=== PATIENT | female | born 1995 | race Caucasian/White ===

== ENCOUNTER 2024-01-03 17:25 | Inpatient (IN) ==
[2024-01-03 18:09] VITALS: BMI 22.1
[2024-01-03] MEDS: LR 1,000 ML IV 1,000 ML IV ONE (18:25)
[2024-01-03 18:29] LABS: BILIRUBIN,URINE NEGATIVE (NEGATIVE); BLOOD/HEMOGLOBIN,URINE 3+ (NEGATIVE); GLUCOSE, URINE NEGATIVE (NEGATIVE); KETONES,URINE NEGATIVE (NEGATIVE); LEUKOCYTE ESTERASE ,URINE NEGATIVE (NEGATIVE); NITRITES,URINE NEGATIVE (NEGATIVE); PROTEIN,URINE 1+ (NEGATIVE); UROBILINOGEN,URINE NORMAL (NORMAL)
[2024-01-03 18:30] LABS: APPEARANCE,URINE CLEAR (CLEAR); COLOR,URINE PALE YELLOW (YELLOW)
[2024-01-03] MEDS: BRETHINE INJ 1 MG VIAL SC ONE ×2 (18:35→21:26)
[2024-01-03 18:36] LABS: BACTERIA,URINE TRACE /HPF (NEGATIVE); SQUAMOUS EPITHELIAL CELL,UR RARE /HPF (NEGATIVE)
[2024-01-03] MEDS: NS 100 ML IV 100 ML ONE (18:40)
[2024-01-03] MEDS: AMPICILLIN VIAL 2 GRAM 2 G in NS 100 ML IV 100 ML IV ONE (18:40)
[2024-01-03] MEDS ORDERED: MAGNESIUM SULFATE 40 GRAMS IV 40 G/1,000 ML BAG IV ONE (18:43)
[2024-01-03] MEDS: MAGNESIUM SULFATE 40 GRAMS IV 40 G/1,000 ML BAG IV PRN (18:45)
[2024-01-03 18:55] LABS: HEMOGLOBIN 13.6 g/dL (12.0-16.0); WHITE BLOOD COUNT 14.5 X10^3/uL (3.6-10.0)
[2024-01-03 18:56] LABS: BASOPHILS # (AUTO) 0.1 X10^3/uL (0.0-0.1); EOSINOPHILS # (AUTO) 0.1 x10^3/uL (0.0-0.2); MEAN PLATELET VOLUME 10.5 fL (7.4-11.0)
[2024-01-03 18:59] LABS: BASOPHILS % (AUTO) 0.4 % (0.2-1.0); EOSINOPHILS % (AUTO) 0.6 % (0.9-2.9); HEMATOCRIT 39.5 % (36.0-47.0); LYMPHOCYTES # (AUTO) 2.6 X10^3/uL (1.3-2.9); LYMPHOCYTES % (AUTO) 18.3 % (21.0-51.0); MEAN CORPUSCULAR HEMOGLOBIN 31.8 pg (27.0-34.0); MEAN CORPUSCULAR HGB CONC 34.3 g/dL (33.0-35.0); MEAN CORPUSCULAR VOLUME 92.6 fL (80.0-100.0); MONOCYTES # (AUTO) 0.9 x10^3/uL (0.3-0.8); NEUTROPHILS # (AUTO) 10.8 x10^3/uL (2.2-4.8); NEUTROPHILS % (AUTO) 74.7 % (42.0-75.0); PLATELET COUNT 158 X10^3/uL (150.0-450.0); RED BLOOD COUNT 4.27 X10^6/uL (3.5-5.4); RED CELL DISTRIBUTION WIDTH 12.8 % (11.6-16.5)
[2024-01-03] MEDS: CELESTONE SOLUSPAN IM ONE (19:00)
[2024-01-03 19:06] LABS: ALANINE AMINOTRANSFERASE 17 Units/L (12-78); ALKALINE PHOSPHATASE 106 Units/L (46-116); ASPARTATE AMINO TRANSFERASE 21 Units/L (15-37); BLOOD UREA NITROGEN 8 mg/dL (7-18); CALCIUM 8.8 mg/dL (8.5-10.1); CARBON DIOXIDE 25.3 mmol/L (21-32); CHLORIDE 100 mmol/L (98-107); COR CA(FOR HYPOALB) 9.6 mg/dL (8.5-10.1); GLUCOSE 67 mg/dL (65-99); POTASSIUM 3.9 mmol/L (3.5-5.1); SODIUM 135 mmol/L (136-145); TOTAL PROTEIN 6.8 g/dL (6.4-8.2); eGFR NON BLACK RACES > 60 (>60)
[2024-01-03] MEDS ORDERED: ZOFRAN INJ 4 MG VIAL IVP PRN (19:32)
[2024-01-03] MEDS ORDERED: NUBAIN INJ 20 MG AMP IVP PRN (19:32)
--- NOTE | 2024-01-03 19:32 | DR.H&PGYN ---
H&P OBSTERICS/GYNECOLOGY Date Date of Exam: 01/03/24 Chief Complaint (1) Premature labor affecting third : Chief Complaint: Labor (2) with 34 completed weeks gestation: Allergies Allergies Allergy/AdvReac Type Severity Reaction Status Date / Time cefdinir [From Omnicef] Allergy Verified 01/03/24 17:55 History of Present Illness History of Present Illness: Patient is a 28 year old, G3, P1011, presents with decreased movement at 34 w 0 d, and was found to be in labor, 4 cm dilated, and chandler every 1-[address] is Sruthi Demarco in [place]. No rupture of membranes. Review of Systems Constitutional: No Symptoms Reported Eyes: No Symptoms Reported ENT: No Symptoms Reported Respiratory: No Symptoms Reported Cardiovascular: No Symptoms Reported Gastrointestinal: No Symptoms Reported Genitourinary: Other (decreased movement) Musculoskeletal: No Symptoms Reported Skin: No Symptoms Reported Neurological: No Symptoms Reported Obsterical History : 3 Para: 1 : 1 Gynecologic History Date of Last Pap Smear: unknown Past Medical History Medical History: No History Family History Significant Family History: No pertinent family hx Medications Active Medications Magnesium Sulfate (Magnesium Sulfate 40 Grams Iv) 40 g in 1,000 mls @ 50 mls/hr IV PER PROTOCOL PRN; Protocol PRN Reason: PER PROTOCOL Physical Exam Temperature: 98.5 F Blood Pressure: 132/66 Respiratory Rate: 16 Pulse Rate: 130 O2 Sat by Pulse Oximetry: 100 Oriented: Normal Eyes: Normal Respiratory: Normal Cardiovascular: Normal : Other (Cervix: 5 / 75 / V / 0 station, intact, Category I tracing. Contractions every 1-2 minutes. ) GI: Other (soft nontender, gravid) Skin: Normal Musculoskeletal: Normal Psychiatric: Normal Mood Description: Calm Affect: Normal Speech Pattern: Clear Plan Plan: Attempt was made to call and request transfer to her doctor in [place], however interval cervical exam reveals 5 cm dilated and 75-80 % effaced. Therefore transfer request was withdrawn. Expectant of vaginal delivery. Review H&P Reviewed: Yes Patient was examined?: Yes
[2024-01-03] MEDS: FENTANYL VIAL INJ 100 mcg ONE ×2 (20:30→20:33)
[2024-01-03] MEDS: NAROPIN EPIDURAL 0.2% 100 ML ONE (20:42)
[2024-01-03] MEDS: OXYTOCIN 20 UNIT/1,000 ML-NS 20 UNIT/1,000 ML PLAST..BAG IV PRN (21:20)
[2024-01-03] MEDS: AMPICILLIN VIAL 2 GRAM ONE (21:28)
[2024-01-03] MEDS: PITOCIN ONE (21:53)
[2024-01-03] MEDS: CYTOTEC PO ONE (22:56)
[2024-01-03] MEDS: PITOCIN IVP ONE (23:02)
[2024-01-03] MEDS: CYTOTEC ONE (23:02)
[2024-01-04] MEDS: ADACEL or BOOSTRIX TDaP VACCINE IM ONE (03:32)
[2024-01-04] MEDS: MOTRIN TAB 600 MG PO PRN (04:01)
[2024-01-04] MEDS: CYTOTEC PO SCH (04:09)
[2024-01-04 05:13] LABS: HEMATOCRIT 37.1 % (36.0-47.0); HEMOGLOBIN 12.5 g/dL (12.0-16.0)
--- NOTE | 2024-01-04 09:27 | NOTE.PROOB ---
progress Note OB- Date Date of Exam: 01/04/24 Subjective Data Subjective: Back pain from epidural placement. Took ibuprofen with little relief. . Sent some colostrum to the baby in [place], and therefore concerned about heavier meds. Minimal vaginal bleeding. Has not eaten breakfast yet. Has not decided whether to leave today or tomorrow, given that the baby is in [place]. Objective Data 01/04/24 04:08 01/03/24 18:35 Objective Data: 28 year old G2, P2, PPD#1 status post delivery at 34 w 0 d. NAD. Lungs CTA. RRR. Abdomen fundus firm at umbilicus. Extermities normal. No CCE. Assessment Assessment: PPD#1 status post premature vaginal delivery at 34 w. Doing well. Plan (1) Premature labor affecting third : Plan: Recommend staying at least 24 hours for observation. (2) with 34 completed weeks gestation:
[2024-01-04] MEDS ORDERED: ADACEL or BOOSTRIX TDaP VACCINE IM ONE (09:40)
[2024-01-04] MEDS: PERCOCET TAB 5/325 MG PO PRN (12:23)
[2024-01-04] MEDS: BETADINE SOLN ONE (12:31)
[2024-01-04] MEDS: HYPERRHO S/D (or RHOGAM) IM ONE (12:32)
[2024-01-04 16:09] VITALS: TEMP 98.2
[2024-01-04 20:10] VITALS: BP 118/69; PULSE 77; RESP 18; O2SAT 98
--- NOTE | 2024-01-09 11:48 | DR.OPNOTE ---
OP NOTE Pre-Op Diagnosis: Premature labor 34 weeks Post-Op Diagnosis: same Procedure Date Date Of Procedure: 01/03/24 Procedure: Normal spontaneous vaginal delivery Type of Anesthesia: Epidural Anesthetic Findings: Live male infant. Called to see patient in second stage labor who is feeling pressure. Found to be completely dilated at 2 + station. Normal spontaneous vaginal delivery with adequate maternal pushing, over intact perineum. Nuchal card reduced, and body delivered. placed on maternal abdomen, and cord was clamped and cut after a one minute delay. Infant then handed off to respiratory and pediatrics staff at the [facility]. Placenta delivered spontaneously, and appears to be intact. Lower uterine segment run with a sponge on forceps, no trailing membranes. No lacerations. Hemostasis verified on the perineum. Fundus firm after massage. Family present at the bedside demonstrate appropriate bonding. Specimen/Pathology: Placenta, cord blood Total Amount of Fluid Infused:: Lactated ringers with pitocin EBL: 50 cc Drains/Tubes Placed: None Drains/Tubes Comment: IUPC placed Complications:: none Disposition/Condition: LDR in stable condition. transferred to nursery in [place] due to prematurity.
--- NOTE | 2024-01-09 11:49 | W.DIS.FURT ---
Summary of Discharge Discharge Summary of Date Date of Exam: 01/04/24 Admission Date Date of Admission: 01/03/24 Admission Diagnosis Hospital Course: Presented in premature labor, with advanced cervical dilation, and progressive cervical change. Vital Signs: Vital Signs (72 hours) 01/03/24 19:32 01/03/24 17:56 01/03/24 18:22 Temperature 98.5 F 98.5 F Pulse Rate 130 H 88 86 Pulse Rate [Left Radial] Pulse Rate [Right Brachial] Respiratory Rate 16 16 Blood Pressure 132/66 120/71 Blood Pressure [Left Arm] O2 Sat by Pulse Oximetry 100 98 99 Oxygen Delivery Method Room Air 01/03/24 18:30 01/03/24 18:30 01/03/24 18:39 Temperature Pulse Rate 93 H 96 H Pulse Rate [Left Radial] Pulse Rate [Right Brachial] Respiratory Rate Blood Pressure 132/86 Blood Pressure [Left Arm] O2 Sat by Pulse Oximetry 100 100 Oxygen Delivery Method 01/03/24 18:50 01/03/24 18:54 01/03/24 18:55 Temperature Pulse Rate 109 H Pulse Rate [Left Radial] Pulse Rate [Right Brachial] Respiratory Rate Blood Pressure 115/78 131/63 Blood Pressure [Left Arm] O2 Sat by Pulse Oximetry 100 Oxygen Delivery Method 01/03/24 18:55 01/03/24 19:00 01/03/24 19:00 Temperature Pulse Rate 110 H 128 H Pulse Rate [Left Radial] Pulse Rate [Right Brachial] Respiratory Rate Blood Pressure 137/65 Blood Pressure [Left Arm] O2 Sat by Pulse Oximetry 100 100 Oxygen Delivery Method 01/03/24 19:02 01/03/24 19:02 01/03/24 19:05 Temperature Pulse Rate 125 H 118 H Pulse Rate [Left Radial] Pulse Rate [Right Brachial] Respiratory Rate Blood Pressure 136/70 Blood Pressure [Left Arm] O2 Sat by Pulse Oximetry 100 100 Oxygen Delivery Method 01/03/24 19:05 01/03/24 19:10 01/03/24 19:10 Temperature Pulse Rate 130 H Pulse Rate [Left Radial] Pulse Rate [Right Brachial] Respiratory Rate Blood Pressure 145/65 132/66 Blood Pressure [Left Arm] O2 Sat by Pulse Oximetry 100 Oxygen Delivery Method 01/03/24 19:26 01/03/24 19:31 01/03/24 19:33 Temperature Pulse Rate 109 H 110 H 117 H Pulse Rate [Left Radial] Pulse Rate [Right Brachial] Respiratory Rate Blood Pressure 137/72 Blood Pressure [Left Arm] O2 Sat by Pulse Oximetry 100 100 Oxygen Delivery Method 01/03/24 19:36 01/03/24 19:41 01/03/24 19:46 Temperature Pulse Rate 109 H 110 H 104 H Pulse Rate [Left Radial] Pulse Rate [Right Brachial] Respiratory Rate Blood Pressure Blood Pressure [Left Arm] O2 Sat by Pulse Oximetry 100 100 100 Oxygen Delivery Method 01/03/24 19:48 01/03/24 19:51 01/03/24 19:56 Temperature Pulse Rate 112 H 106 H 113 H Pulse Rate [Left Radial] Pulse Rate [Right Brachial] Respiratory Rate Blood Pressure 137/74 Blood Pressure [Left Arm] O2 Sat by Pulse Oximetry 100 100 Oxygen Delivery Method 01/03/24 20:01 01/03/24 20:04 01/03/24 20:06 Temperature 97.3 F L Pulse Rate 114 H 120 H 127 H Pulse Rate [Left Radial] Pulse Rate [Right Brachial] Respiratory Rate Blood Pressure 130/64 Blood Pressure [Left Arm] O2 Sat by Pulse Oximetry 100 100 Oxygen Delivery Method 01/03/24 20:11 01/03/24 20:16 01/03/24 20:19 Temperature Pulse Rate 127 H 129 H 122 H Pulse Rate [Left Radial] Pulse Rate [Right Brachial] Respiratory Rate Blood Pressure 123/58 Blood Pressure [Left Arm] O2 Sat by Pulse Oximetry 100 100 Oxygen Delivery Method 01/03/24 20:21 01/03/24 20:26 01/03/24 20:30 Temperature Pulse Rate 129 H 122 H 125 H Pulse Rate [Left Radial] Pulse Rate [Right Brachial] Respiratory Rate Blood Pressure 125/65 Blood Pressure [Left Arm] O2 Sat by Pulse Oximetry 100 100 Oxygen Delivery Method 01/03/24 20:31 01/03/24 20:33 01/03/24 20:36 Temperature Pulse Rate 126 H 116 H 125 H Pulse Rate [Left Radial] Pulse Rate [Right Brachial] Respiratory Rate Blood Pressure 125/61 139/62 Blood Pressure [Left Arm] O2 Sat by Pulse Oximetry 100 100 Oxygen Delivery Method 01/03/24 20:39 01/03/24 20:41 01/03/24 20:42 Temperature Pulse Rate 118 H 119 H 114 H Pulse Rate [Left Radial] Pulse Rate [Right Brachial] Respiratory Rate Blood Pressure 114/57 132/59 Blood Pressure [Left Arm] O2 Sat by Pulse Oximetry 99 Oxygen Delivery Method 01/03/24 20:45 01/03/24 20:46 01/03/24 20:48 Temperature Pulse Rate 115 H 109 H 112 H Pulse Rate [Left Radial] Pulse Rate [Right Brachial] Respiratory Rate Blood Pressure 131/60 124/59 Blood Pressure [Left Arm] O2 Sat by Pulse Oximetry 100 Oxygen Delivery Method 01/03/24 20:51 01/03/24 20:30 01/03/24 20:54 Temperature Pulse Rate 107 H 105 H Pulse Rate [Left Radial] Pulse Rate [Right Brachial] Respiratory Rate 18 Blood Pressure 124/60 122/57 Blood Pressure [Left Arm] O2 Sat by Pulse Oximetry 100 Oxygen Delivery Method 01/03/24 20:56 01/03/24 20:57 01/03/24 21:00 Temperature Pulse Rate 121 H 108 H Pulse Rate [Left Radial] Pulse Rate [Right Brachial] Respiratory Rate Blood Pressure 123/58 131/60 Blood Pressure [Left Arm] O2 Sat by Pulse Oximetry 100 Oxygen Delivery Method 01/03/24 21:01 01/03/24 21:03 01/03/24 21:06 Temperature Pulse Rate 108 H 105 H 110 H Pulse Rate [Left Radial] Pulse Rate [Right Brachial] Respiratory Rate Blood Pressure 136/59 130/61 Blood Pressure [Left Arm] O2 Sat by Pulse Oximetry 100 100 Oxygen Delivery Method 01/03/24 21:09 01/03/24 21:11 01/03/24 21:12 Temperature Pulse Rate 96 H 102 H 102 H Pulse Rate [Left Radial] Pulse Rate [Right Brachial] Respiratory Rate Blood Pressure 116/55 106/58 Blood Pressure [Left Arm] O2 Sat by Pulse Oximetry 100 Oxygen Delivery Method 01/03/24 21:15 01/03/24 21:16 01/03/24 21:18 Temperature Pulse Rate 100 H 106 H 102 H Pulse Rate [Left Radial] Pulse Rate [Right Brachial] Respiratory Rate Blood Pressure 105/56 112/55 Blood Pressure [Left Arm] O2 Sat by Pulse Oximetry 100 Oxygen Delivery Method 01/03/24 21:21 01/03/24 21:24 01/03/24 21:26 Temperature Pulse Rate 94 H 107 H 96 H Pulse Rate [Left Radial] Pulse Rate [Right Brachial] Respiratory Rate Blood Pressure 114/59 102/50 Blood Pressure [Left Arm] O2 Sat by Pulse Oximetry 100 100 Oxygen Delivery Method 01/03/24 21:27 01/03/24 21:30 01/03/24 21:31 Temperature Pulse Rate 100 H 107 H 101 H Pulse Rate [Left Radial] Pulse Rate [Right Brachial] Respiratory Rate Blood Pressure 115/56 116/62 Blood Pressure [Left Arm] O2 Sat by Pulse Oximetry 100 Oxygen Delivery Method 01/03/24 21:36 01/03/24 21:39 01/03/24 21:42 Temperature Pulse Rate 104 H 102 H 214 H Pulse Rate [Left Radial] Pulse Rate [Right Brachial] Respiratory Rate Blood Pressure 130/62 120/64 Blood Pressure [Left Arm] O2 Sat by Pulse Oximetry 100 Oxygen Delivery Method 01/03/24 21:41 01/03/24 21:46 01/03/24 21:45 Temperature Pulse Rate 104 H 94 H Pulse Rate [Left Radial] Pulse Rate [Right Brachial] Respiratory Rate 18 Blood Pressure Blood Pressure [Left Arm] O2 Sat by Pulse Oximetry 91 L 100 Oxygen Delivery Method 01/03/24 21:51 01/03/24 21:56 01/03/24 21:58 Temperature Pulse Rate 96 H 95 H 98 H Pulse Rate [Left Radial] Pulse Rate [Right Brachial] Respiratory Rate Blood Pressure 124/60 Blood Pressure [Left Arm] O2 Sat by Pulse Oximetry 100 100 Oxygen Delivery Method 01/03/24 22:01 01/03/24 22:06 01/03/24 22:11 Temperature Pulse Rate 101 H 100 H 114 H Pulse Rate [Left Radial] Pulse Rate [Right Brachial] Respiratory Rate Blood Pressure Blood Pressure [Left Arm] O2 Sat by Pulse Oximetry 100 100 100 Oxygen Delivery Method 01/03/24 22:13 01/03/24 22:16 01/03/24 22:15 Temperature 97.2 F L Pulse Rate 100 H 97 H Pulse Rate [Left Radial] Pulse Rate [Right Brachial] Respiratory Rate 18 Blood Pressure 127/63 Blood Pressure [Left Arm] O2 Sat by Pulse Oximetry 100 Oxygen Delivery Method 01/03/24 22:19 01/03/24 22:21 01/03/24 22:26 Temperature Pulse Rate 101 H 99 H 104 H Pulse Rate [Left Radial] Pulse Rate [Right Brachial] Respiratory Rate Blood Pressure Blood Pressure [Left Arm] O2 Sat by Pulse Oximetry 77 L 100 96 Oxygen Delivery Method 01/03/24 22:28 01/03/24 22:31 01/03/24 22:33 Temperature Pulse Rate 112 H 107 H 114 H Pulse Rate [Left Radial] Pulse Rate [Right Brachial] Respiratory Rate Blood Pressure 125/77 Blood Pressure [Left Arm] O2 Sat by Pulse Oximetry 100 93 L Oxygen Delivery Method 01/03/24 22:36 01/03/24 22:40 01/03/24 22:43 Temperature Pulse Rate 112 H 114 H 140 H Pulse Rate [Left Radial] Pulse Rate [Right Brachial] Respiratory Rate Blood Pressure Blood Pressure [Left Arm] O2 Sat by Pulse Oximetry 91 L 90 L 97 Oxygen Delivery Method 01/03/24 22:48 01/03/24 22:49 01/03/24 22:53 Temperature Pulse Rate 103 H 107 H 106 H Pulse Rate [Left Radial] Pulse Rate [Right Brachial] Respiratory Rate Blood Pressure Blood Pressure [Left Arm] O2 Sat by Pulse Oximetry 97 88 L 97 Oxygen Delivery Method 01/03/24 22:58 01/03/24 23:03 01/03/24 23:08 Temperature Pulse Rate 103 H 111 H 98 H Pulse Rate [Left Radial] Pulse Rate [Right Brachial] Respiratory Rate Blood Pressure Blood Pressure [Left Arm] O2 Sat by Pulse Oximetry 98 98 100 Oxygen Delivery Method 01/03/24 23:13 01/03/24 23:18 01/03/24 23:22 Temperature Pulse Rate 98 H 95 H 93 H Pulse Rate [Left Radial] Pulse Rate [Right Brachial] Respiratory Rate Blood Pressure Blood Pressure [Left Arm] O2 Sat by Pulse Oximetry 100 100 90 L Oxygen Delivery Method 01/03/24 23:24 01/03/24 23:24 01/03/24 23:29 Temperature Pulse Rate 91 H 95 H 94 H Pulse Rate [Left Radial] Pulse Rate [Right Brachial] Respiratory Rate Blood Pressure Blood Pressure [Left Arm] O2 Sat by Pulse Oximetry 100 90 L 100 Oxygen Delivery Method 01/03/24 23:34 01/03/24 23:39 01/03/24 19:30 Temperature Pulse Rate 91 H 89 Pulse Rate [Left Radial] Pulse Rate [Right Brachial] Respiratory Rate Blood Pressure Blood Pressure [Left Arm] O2 Sat by Pulse Oximetry 100 100 Oxygen Delivery Method Room Air 01/03/24 22:46 01/03/24 23:00 01/03/24 23:15 Temperature 98.2 F Pulse Rate 95 H 91 H 94 H Pulse Rate [Left Radial] Pulse Rate [Right Brachial] Respiratory Rate 18 18 18 Blood Pressure 116/66 117/69 114/70 Blood Pressure [Left Arm] O2 Sat by Pulse Oximetry Oxygen Delivery Method 01/03/24 23:30 01/03/24 22:54 01/04/24 00:10 Temperature 99.1 F 99.1 F Pulse Rate 89 87 87 Pulse Rate [Left Radial] Pulse Rate [Right Brachial] Respiratory Rate 18 20 20 Blood Pressure 116/66 147/69 147/69 Blood Pressure [Left Arm] O2 Sat by Pulse Oximetry Oxygen Delivery Method 01/03/24 23:55 01/03/24 23:55 01/04/24 00:30 Temperature 99.1 F 98.6 F Pulse Rate 88 Pulse Rate [Left Radial] 87 Pulse Rate [Right Brachial] Respiratory Rate 20 18 Blood Pressure 141/72 Blood Pressure [Left Arm] 147/69 O2 Sat by Pulse Oximetry 98 Oxygen Delivery Method Room Air Room Air 01/03/24 23:45 01/04/24 00:40 01/04/24 00:55 Temperature 98.4 F 99.0 F Pulse Rate 89 89 86 Pulse Rate [Left Radial] Pulse Rate [Right Brachial] Respiratory Rate 17 18 20 Blood Pressure 120/68 136/71 132/70 Blood Pressure [Left Arm] O2 Sat by Pulse Oximetry Oxygen Delivery Method 01/04/24 01:10 01/04/24 04:01 01/04/24 04:10 Temperature 98.7 F 98.1 F Pulse Rate 89 79 Pulse Rate [Left Radial] Pulse Rate [Right Brachial] Respiratory Rate 18 18 18 Blood Pressure 162/74 137/80 Blood Pressure [Left Arm] O2 Sat by Pulse Oximetry Oxygen Delivery Method 01/04/24 03:55 01/04/24 05:01 01/04/24 05:10 Temperature 98.1 F 98.7 F Pulse Rate 75 Pulse Rate [Left Radial] 79 Pulse Rate [Right Brachial] Respiratory Rate 18 18 16 Blood Pressure 127/75 Blood Pressure [Left Arm] 137/80 O2 Sat by Pulse Oximetry 96 Oxygen Delivery Method Room Air 01/04/24 12:23 01/04/24 13:34 01/04/24 07:00 Temperature Pulse Rate Pulse Rate [Left Radial] Pulse Rate [Right Brachial] Respiratory Rate 18 18 Blood Pressure Blood Pressure [Left Arm] O2 Sat by Pulse Oximetry Oxygen Delivery Method Room Air 01/04/24 08:00 01/04/24 12:00 01/04/24 16:00 Temperature 98.7 F 98.8 F 98.2 F Pulse Rate Pulse Rate [Left Radial] 58 L 62 Pulse Rate [Right Brachial] 94 H Respiratory Rate 21 21 21 Blood Pressure Blood Pressure [Left Arm] 120/78 134/77 125/73 O2 Sat by Pulse Oximetry 97 100 95 Oxygen Delivery Method Room Air Room Air Room Air 01/04/24 19:00 01/04/24 20:00 01/04/24 22:13 Temperature 98.2 F Pulse Rate Pulse Rate [Left Radial] Pulse Rate [Right Brachial] 77 Respiratory Rate 18 18 Blood Pressure Blood Pressure [Left Arm] 118/69 O2 Sat by Pulse Oximetry 98 Oxygen Delivery Method Room Air Room Air 01/04/24 22:18 Temperature Pulse Rate Pulse Rate [Left Radial] Pulse Rate [Right Brachial] Respiratory Rate 18 Blood Pressure Blood Pressure [Left Arm] O2 Sat by Pulse Oximetry Oxygen Delivery Method Labs: Laboratory Last Values WBC 14.5 X10^3/uL (3.6-10.0) H 01/03/24 18:35 RBC 4.27 X10^6/uL (3.5-5.4) 01/03/24 18:35 Hgb 12.5 g/dL (12.0-16.0) 01/04/24 04:08 Hct 37.1 % (36.0-47.0) 01/04/24 04:08 MCV 92.6 fL (80.0-100.0) 01/03/24 18:35 MCH 31.8 pg (27.0-34.0) 01/03/24 18:35 MCHC 34.3 g/dL (33.0-35.0) 01/03/24 18:35 RDW 12.8 % (11.6-16.5) 01/03/24 18:35 Plt Count 158 X10^3/uL (150.0-450.0) 01/03/24 18:35 MPV 10.5 fL (7.4-11.0) 01/03/24 18:35 Neut % (Auto) 74.7 % (42.0-75.0) 01/03/24 18:35 Lymph % (Auto) 18.3 % (21.0-51.0) L 01/03/24 18:35 [place] % (Auto) 6.0 % (0.0-13.0) 01/03/24 18:35 Eos % (Auto) 0.6 % (0.9-2.9) L 01/03/24 18:35 Baso % (Auto) 0.4 % (0.2-1.0) 01/03/24 18:35 Neut # (Auto) 10.8 x10^3/uL (2.2-4.8) H 01/03/24 18:35 Lymph # (Auto) 2.6 X10^3/uL (1.3-2.9) 01/03/24 18:35 [place] # (Auto) 0.9 x10^3/uL (0.3-0.8) H 01/03/24 18:35 Eos # (Auto) 0.1 x10^3/uL (0.0-0.2) 01/03/24 18:35 Baso # (Auto) 0.1 X10^3/uL (0.0-0.1) 01/03/24 18:35 Absolute Nucleated RBC 0.2 /100WBC 01/03/24 18:35 Sodium 135 mmol/L (136-145) L 01/03/24 18:35 Corrected Sodium TNP 01/03/24 18:35 Potassium 3.9 mmol/L (3.5-5.1) 01/03/24 18:35 Chloride 100 mmol/L (98-107) 01/03/24 18:35 Carbon Dioxide 25.3 mmol/L (21-32) 01/03/24 18:35 BUN 8 mg/dL (7-18) 01/03/24 18:35 Creatinine 0.60 mg/dL (0.55-1.02) 01/03/24 18:35 Est GFR (MDRD) Af Amer > 60 (>60) 01/03/24 18:35 Est GFR (MDRD) Non-Af > 60 (>60) 01/03/24 18:35 Glucose 67 mg/dL (65-99) 01/03/24 18:35 POC Glucose (mg/dL) 92 mg/dL (65-99) 01/04/24 19:20 Calcium 8.8 mg/dL (8.5-10.1) 01/03/24 18:35 Corrected Calcium 9.6 mg/dL (8.5-10.1) 01/03/24 18:35 Total Bilirubin 0.30 mg/dL (0.2-1.0) 01/03/24 18:35 AST 21 Units/L (15-37) 01/03/24 18:35 ALT 17 Units/L (12-78) 01/03/24 18:35 Alkaline Phosphatase 106 Units/L (46-116) 01/03/24 18:35 Total Protein 6.8 g/dL (6.4-8.2) 01/03/24 18:35 Albumin 3.0 g/dL (3.4-5.0) L 01/03/24 18:35 Globulin 3.8 g/dL (2.5-4.5) 01/03/24 18:35 Albumin/Globulin Ratio 0.8 Ratio (1.1-2.1) L 01/03/24 18:35 Specimen Type Clean catch urine 01/03/24 18:15 Urine Color Pale yellow (YELLOW) 01/03/24 18:15 Urine Appearance Clear (CLEAR) 01/03/24 18:15 Urine pH 6.0 (5.0 - 8.0) 01/03/24 18:15 Ur Specific [place] 1.015 (1.000-1.030) 01/03/24 18:15 Urine Protein 1+ (NEGATIVE) 01/03/24 18:15 Urine Glucose (UA) Negative (NEGATIVE) 01/03/24 18:15 Urine Ketones Negative (NEGATIVE) 01/03/24 18:15 Urine Blood 3+ (NEGATIVE) 01/03/24 18:15 Urine Nitrite Negative (NEGATIVE) 01/03/24 18:15 Urine Bilirubin Negative (NEGATIVE) 01/03/24 18:15 Urine Urobilinogen Normal (NORMAL) 01/03/24 18:15 Ur Leukocyte Esterase Negative (NEGATIVE) 01/03/24 18:15 Urine RBC 5-10 /HPF (0-3) A 01/03/24 18:15 Urine WBC 0-2 /HPF (0-5) 01/03/24 18:15 Ur Squamous Epith Cells Rare /HPF (NEGATIVE) 01/03/24 18:15 Urine Bacteria Trace /HPF (NEGATIVE) 01/03/24 18:15 Ur Culture Indicated? No/not indicated 01/03/24 18:15 Urine Opiates Screen Negative (NEG=<300) 01/03/24 18:15 Urine Methadone Screen Negative (NEG=<300) 01/03/24 18:15 Ur Barbiturates Screen Negative (NEG=<200) 01/03/24 18:15 Ur Phencyclidine Scrn Negative (NEG=<25) 01/03/24 18:15 Ur Amphetamines Screen Negative (NEG=<1000) 01/03/24 18:15 U Benzodiazepines Scrn Negative (NEG=<200) 01/03/24 18:15 Urine Cocaine Screen Negative (NEG=<300) 01/03/24 18:15 U Marijuana (THC) Screen Negative (NEG=<50) 01/03/24 18:15 RPR Nonreactive (NONREACTIVE) 01/03/24 18:35 HIV 1&2 Antibody Non reactive (NONREACTIVE) 01/03/24 18:35 HIV P24 Antigen Non reactive (NONREACTIVE) 01/03/24 18:35 Reason For Visit: PREMATURE LABOR Discharge Diagnosis All Active Problems (Updated 01/03/24 @ 19:22 by Annie Prado) with 34 completed weeks gestation (Acute) Premature labor affecting third (Acute) Abdominal pain, RLQ (Acute) Kidney stone (Acute) Plan of Treatment: Continue with present treatment and follow up plan. Pt is to keep follow up appointment as instructed and take medications as ordered. Patient left at 24 hours post delivery due to infant having been transferred out to [place]. Discharge Medications Discharge Medications: cefdinir [From Omnicef] Allergy (Verified 01/03/24 17:55) New Prescriptions ibuprofen 600 mg tablet 600 mg PO Q6H PRN 14 days #30 tabs 01/04/24 [Rx] Discharge Disposition Assessment: Stable and satisfactory condition at the time of discharge. Discharge Plan Discharge Plan Hospital Course: Presented in premature labor, with advanced cervical dilation, and progressive cervical change. Patient Disposition: 01 HOME, SELF-CARE Condition: Stable Health Concerns: Post Hospitalization: new medications and changes needed to prevent readmission or further decline. Pt educated and given instructions on all concerns. Plan of Treatment: Continue with present treatment and follow up plan. Pt is to keep follow up appointment as instructed and take medications as ordered. Patient left at 24 hours post delivery due to infant having been transferred out to [place]. Assessment: Stable and satisfactory condition at the time of discharge. Prescription drug monitoring program results: PDMP was not reviewed Prescriptions: New ibuprofen 600 mg Tablet 600 mg PO Q6H PRN14 Days Qty: 30 1RF No Action NK Follow ups/Referrals Follow ups/Referrals: Bouchra Demarco [Primary Care Provider] - 1 WEEK Instructions Instructions: Vaginal Delivery, Care After, Care After Vaginal Delivery Stand Alone Forms: Excuse From Work or School, Post Hospital Follow Up Care
== END 2024-01-04 22:30 | disposition home or self-care (01) | DRG 807 ==
LOC: ER 17:31 → LD 19:12 → MED/SURG 23:53
PROVIDERS: ADMIT Obstetrics & Gynecology; ATTEND Obstetrics & Gynecology